=== PATIENT | female | born 1965 | race Hispanic/Latino ===

== ENCOUNTER 2017-02-26 08:37 | Day surgery (SDC) | payer OTHER ==
[~2017-02-26] VITALS: Ht 152.4 cm; Wt 67.0 kg
[~2017-02-26 08:37] MED LIST: 0.9% Sodium Chloride 1,000 ML IV SCH; ASPI325T32 PO; MULT1CAP33 PO; Sodium Chloride LOK Flush 10 mL Syringe IV PRN; TELM1TAB2 PO; fentaNYL-PF 50 mCg/mL 2 mL Inj IVPUSH PRN
[2017-02-26 08:57] VITALS: BP 133/80; PULSE 60; RESP 16; O2SAT 99
--- NOTE | 2017-02-26 09:46 | PCM.ENDCOL ---
Colonoscopy Date of Service: Feb 26, 2017 Physician Navneet Magana MD Pre Procedure Diagnosis: Screening Post Procedure Dx & Findings: Polyp hemorrhoids Procedure Colonoscopy PROCEDURE IN DETAIL: Prep adequate Withdrawal time 13 minutes After unremarkable rectal examination the Olympus video colonoscope was inserted patient's anal canal and was advanced to cecum. Landmarks were identified including the ileocecal valve and appendiceal orifice. Scope was withdrawn systematically. Visualized colonic mucosa showed healthy shiny mucosa with normal healthy-appearing vasculature. In the rectum there was a 1 mm polyp which was removed completely using cold forceps. In the rectum retroflexion was done which showed hemorrhoids. Anal canal was inspected carefully on the way out and hemorrhoids noted. Impression Polyp 1 status post complete removal Hemorrhoids Recommendation Repeat colonoscopy 5 years Presedation Assessment Risks and Benefits Informed consent was obtained from the patient after all risks and benefits including but not limited to drug reaction, infection, pain, bleeding, perforation, as well as alternatives were discussed. Patient monitoring Continuous pulse oximetry, cardiac monitoring, blood pressure monitoring, IV access, and oxygen at 2L per nasal cannula. Periprocedural Fentanyl: Other Midazolam: Midazolam 4mg Incrementally Complications There were no periprocedural complications identified. Post Procedure Plan Post Procedure Recommendations 1. Restrict activities today. 2. Resume normal activities in the morning. 3. Resume medications. 4. Patient informed of normal post procedure side effects as bloating, drowsiness, blood streaking in the stool. 5. average risk CRCS. If colon polyps come back as: -Hyperplastic- can repeat colonoscopy in 10 years -Tubular adenoma- repeat colonoscopy in 5 years -Tubulovillous/villous adenoma- repeat colonoscopy in 3 years -If any dysplasia- return to clinic as soon as possible 6. Please don't hesitate to call me with any questions. Navneet Magana MD Feb 26, 2017 09:46
[2017-02-26 09:48] VITALS: BP 100/61; PULSE 53; RESP 16; O2SAT 98
[2017-02-26 09:58] VITALS: BP 102/59; PULSE 56; RESP 12; O2SAT 100
--- NOTE | 2017-03-01 10:41 | PATH ---
SURGICAL PATHOLOGY Attending Physician:Navneet Magana M.D. CASE STATUS: Signed Out PATIENT NAME: KJ SEVERINO PID: [id number] : 1965 DATE COLLECTED:02/26/2017 17:24 SPECIMEN: Rectum, Biopsy CLINICAL HISTORY: 1). RECTAL POLYP FINAL DIAGNOSIS: 1.RECTAL POLYP: POLYPOID-SHAPED FRAGMENT OF RECTAL MUCOSA WITH SUPERFICIAL AGGREGATES OF MUCIPHAGES AND FOCAL MUCOSAL FIBROSIS (CHANGES CONSISTENT WITH PREVIOUS MUCOSAL INJURY). NEGATIVE FOR DYSPLASIA AND MALIGNANCY. ICD10 CODE K62.1 GROSS DESCRIPTION: The specimen is received in one formalin filled container labeled with the patient's name, sublabeled "rectal" and consists of a 0.3-0.3 x 0.2 CM portion of tissue which is entirely submitted in one cassette. 02/26/2017 [facility] MICRO DESCRIPTION: See diagnosis. ICD-9 CODES: CPT CODES: 1: 19736 Electronically Signed Out Simone Byrd MD [facility] Pathology [facility] [address], [place] [address] Technical component performed at [facility], [facility] [address], [place], [address]
== END 2017-02-26 23:59 | disposition home or self-care (01) ==
LOC: END 08:37
PROVIDERS: ATTEND Internal Medicine
DX: Z12.11 Encounter for screening for malignant neoplasm of colon (principal); K62.1 Rectal polyp; K64.9 Unspecified hemorrhoids; I10 Essential (primary) hypertension
CPT/HCPCS: 45380; 88305; G0500; J7030